=== PATIENT | male | born 1945 | race Caucasian/White ===

== ENCOUNTER 2020-01-23 16:03 | Inpatient (IN) ==
[2020-01-23] MEDS ORDERED: ALUMINUM/MAGNES/SIMETH MAX STR 30 ML UDCUP PO PRN (18:45)
[2020-01-23] MEDS ORDERED: ONDANSETRON 4 MG/2 ML VIAL IV PRN (18:45)
[2020-01-23] MEDS ORDERED: GLUCAGON 1 MG VIAL IM PRN (18:45)
[2020-01-23] MEDS ORDERED: CALCIUM CARBONATE CHEW 500 MG TABLET PO PRN (18:45)
[2020-01-23] MEDS ORDERED: ACETAMINOPHEN 325 MG TABLET PO PRN (18:45)
[2020-01-23] MEDS ORDERED: DEXTROSE 50% 25 GM/50 ML VIAL IV PRN (18:45)
[2020-01-23] MEDS ORDERED: FUROSEMIDE 100 MG/10 ML VIAL IV ONE (18:58)
[2020-01-23] MEDS ORDERED: FUROSEMIDE 20 MG/2 ML VIAL ONE (19:47)
[2020-01-23] MEDS ORDERED: FUROSEMIDE 40 MG/4 ML VIAL ONE (19:47)
[2020-01-23] MEDS: ALBUTEROL/IPRATROPIUM 3 ML NEB RESP TX SCH (19:49)
[2020-01-23] MEDS ORDERED: NITROGLYCERIN SL 0.4 MG TABLET SL ONE ×2 (20:40→20:49)
[2020-01-23] MEDS: NITROGLYCERIN SL 0.4 MG TABLET SL PRN ×2 (20:42→20:50)
[2020-01-23] MEDS ORDERED: ASPIRIN CHEW 81 MG TABLET PO ONE ×2 (20:49→20:57)
[2020-01-23 20:53] LABS: Basophils % 0.4 % (0.0-0.8); Eosinophils % 0.2 % (0.00-10.9); Hematocrit 41.8 VOL% (42.0-52.0); Hemoglobin 13.3 GM/DL (14.0-18.0); Immature Granulocytes % 0.5 %; Immature Granulocytes Absolute 0.05 #; Lymphocytes # 2.3 10*3/uL (1.4-4.0); Lymphocytes % 21.8 % (21.2-54.2); Mean Corpuscular HGB Conc 31.8 GM/DL (32-36); Mean Platelet Volume 11.1 FL (9.6-12.0); Monocytes % 6.8 % (1.7-12.7); NRBC # 0.04 10*3/uL; Neutrophils % 70.3 % (38.7-73.9); Platelet Count 239 T/CUMM (130-400); Red Blood Count 4.18 MC/CUMM (3.8-5.5); Red Cell Distribution Width 14.1 % (9.3-17.3); White Blood Count 10.4 T/CUMM (4-12)
[2020-01-23] MEDS ORDERED: ENOXAPARIN 30 MG/0.3 ML SYRINGE SUBCUT SCH (21:00)
[2020-01-23] MEDS: INSULIN LISPRO 100 UNIT/ML SUBCUT SCH (21:11)
[2020-01-23] MEDS: DIVALPROEX 500 MG TABLET PO SCH (21:11)
[2020-01-23] MEDS: QUEtiapine 100 MG TABLET PO SCH (21:11)
[2020-01-23 21:15] LABS: Albumin 3.1 G/DL (3.4-5.0); Calcium 8.6 MG/DL (8.5-10.1); Osmolality,Calculated 290.3 MOS/KG (273-304); Total Protein 6.7 G/DL (6.4-8.3)
[2020-01-24] MEDS: ALBUTEROL/IPRATROPIUM 3 ML NEB RESP TX SCH ×4 (00:35→18:59)
[2020-01-24 04:52] LABS: Basophils # 0.1 10*3/uL (0.0-0.2); Basophils % 0.6 % (0.0-0.8); Eosinophils # 0.1 10*3/uL (0.0-0.87); Eosinophils % 1.1 % (0.00-10.9); Hematocrit 43.4 VOL% (42.0-52.0); Hemoglobin 13.7 GM/DL (14.0-18.0); Immature Granulocytes % 0.6 %; Immature Granulocytes Absolute 0.06 #; Lymphocytes # 3.2 10*3/uL (1.4-4.0); Lymphocytes % 33.1 % (21.2-54.2); Mean Corpuscular HGB Conc 31.6 GM/DL (32-36); Mean Corpuscular Volume 101.4 FL (87-102); Mean Platelet Volume 11.2 FL (9.6-12.0); Monocytes % 8.1 % (1.7-12.7); NRBC # 0.03 10*3/uL; Neutrophils % 56.5 % (38.7-73.9); Platelet Count 216 T/CUMM (130-400); Red Blood Count 4.28 MC/CUMM (3.8-5.5); Red Cell Distribution Width 14.3 % (9.3-17.3); White Blood Count 9.7 T/CUMM (4-12)
[2020-01-24 05:36] LABS: Albumin 3.1 G/DL (3.4-5.0); Bilirubin,Total 1.5 MG/DL (0.2-1.0); Calcium 8.9 MG/DL (8.5-10.1); Total Protein 6.5 G/DL (6.4-8.3)
[2020-01-24 05:46] LABS: Troponin I 16.1 NG/ML (0.00-0.045)
[2020-01-24] MEDS: INSULIN LISPRO 100 UNIT/ML SUBCUT SCH ×4 (07:45→20:54)
[2020-01-24] MEDS ORDERED: NITROGLYCERIN DRIP 50 MG/250 ML BOTTLE IV PRN (07:52)
[2020-01-24] MEDS: FINASTERIDE 5 MG TABLET PO SCH (08:49)
[2020-01-24] MEDS: DIVALPROEX 500 MG TABLET PO SCH ×3 (08:49→20:54)
[2020-01-24] MEDS: METOPROLOL SUCCINATE XL 25 MG TABLET PO SCH (08:49)
[2020-01-24] MEDS: ASPIRIN 325 MG TABLET PO SCH (08:50)
[2020-01-24] MEDS: PANTOPRAZOLE 40 MG TABLET PO SCH (08:50)
[2020-01-24] MEDS: ENOXAPARIN 100 MG/ML SYRINGE SUBCUT SCH (11:38)
[2020-01-24] MEDS: QUEtiapine 100 MG TABLET PO SCH (20:54)
[2020-01-25] MEDS: ALBUTEROL/IPRATROPIUM 3 ML NEB RESP TX SCH ×4 (00:10→19:22)
[2020-01-25] MEDS: ENOXAPARIN 100 MG/ML SYRINGE SUBCUT SCH ×3 (00:45→23:55)
[2020-01-25 03:53] LABS: Basophils # 0.1 10*3/uL (0.0-0.2); Basophils % 0.6 % (0.0-0.8); Eosinophils # 0.3 10*3/uL (0.0-0.87); Eosinophils % 3.4 % (0.00-10.9); Hematocrit 36.4 VOL% (42.0-52.0); Hemoglobin 11.9 GM/DL (14.0-18.0); Immature Granulocytes % 0.5 %; Immature Granulocytes Absolute 0.04 #; Lymphocytes # 2.1 10*3/uL (1.4-4.0); Lymphocytes % 26.7 % (21.2-54.2); Mean Corpuscular HGB Conc 32.7 GM/DL (32-36); Mean Corpuscular Volume 97.8 FL (87-102); Mean Platelet Volume 11.4 FL (9.6-12.0); Monocytes % 8.3 % (1.7-12.7); Neutrophils % 60.5 % (38.7-73.9); Platelet Count 188 T/CUMM (130-400); Red Blood Count 3.72 MC/CUMM (3.8-5.5); White Blood Count 7.8 T/CUMM (4-12)
[2020-01-25 04:06] LABS: Calcium 8.5 MG/DL (8.5-10.1)
[2020-01-25] MEDS: INSULIN LISPRO 100 UNIT/ML SUBCUT SCH ×4 (07:30→21:04)
[2020-01-25] MEDS: ASPIRIN 325 MG TABLET PO SCH (08:18)
[2020-01-25] MEDS: DIVALPROEX 500 MG TABLET PO SCH ×3 (08:18→21:04)
[2020-01-25] MEDS: FINASTERIDE 5 MG TABLET PO SCH (08:18)
[2020-01-25] MEDS: METOPROLOL SUCCINATE XL 25 MG TABLET PO SCH (08:18)
[2020-01-25] MEDS: PANTOPRAZOLE 40 MG TABLET PO SCH (08:18)
[2020-01-25] MEDS ORDERED: MAGNESIUM SULF RIDER 2 GM in PREMIX 1 EACH IV PRN (09:26)
[2020-01-25] MEDS ORDERED: diphenhydrAMINE CAP 25 MG CAPSULE PO ONE (09:26)
[2020-01-25] MEDS ORDERED: POTASSIUM CHLORIDE RIDER 10 MEQ in PREMIX 1 EACH IV PRN (09:26)
[2020-01-25] MEDS ORDERED: DIAZEPAM 5 MG TABLET PO ONE (09:26)
[2020-01-25] MEDS ORDERED: SODIUM CHLORIDE 0.45% 1,000 ML IV SCH (09:30)
[2020-01-25] MEDS: QUEtiapine 100 MG TABLET PO SCH (21:04)
[2020-01-26] MEDS: ALBUTEROL/IPRATROPIUM 3 ML NEB RESP TX SCH ×4 (01:00→19:10)
[2020-01-26 03:15] LABS: Basophils # 0.1 10*3/uL (0.0-0.2); Basophils % 0.7 % (0.0-0.8); Eosinophils # 0.4 10*3/uL (0.0-0.87); Eosinophils % 5.1 % (0.00-10.9); Hematocrit 35.9 VOL% (42.0-52.0); Hemoglobin 11.8 GM/DL (14.0-18.0); Immature Granulocytes % 0.5 %; Immature Granulocytes Absolute 0.04 #; Lymphocytes # 2.2 10*3/uL (1.4-4.0); Lymphocytes % 26.7 % (21.2-54.2); Mean Corpuscular HGB Conc 32.9 GM/DL (32-36); Mean Corpuscular Volume 98.1 FL (87-102); Mean Platelet Volume 11.4 FL (9.6-12.0); Monocytes % 8.6 % (1.7-12.7); Neutrophils % 58.4 % (38.7-73.9); Platelet Count 177 T/CUMM (130-400); Red Blood Count 3.66 MC/CUMM (3.8-5.5); Red Cell Distribution Width 13.9 % (9.3-17.3); White Blood Count 8.2 T/CUMM (4-12)
[2020-01-26 03:44] LABS: Calcium 8.7 MG/DL (8.5-10.1); Osmolality,Calculated 285.1 MOS/KG (273-304)
[2020-01-26] MEDS ORDERED: diphenhydrAMINE CAP 25 MG CAPSULE PO ONE (06:00)
[2020-01-26] MEDS ORDERED: SODIUM CHLORIDE 0.45% 1,000 ML IV SCH (06:00)
[2020-01-26] MEDS ORDERED: DIAZEPAM 5 MG TABLET PO ONE (06:00)
[2020-01-26] MEDS: METOPROLOL SUCCINATE XL 25 MG TABLET PO SCH (07:40)
[2020-01-26] MEDS: FINASTERIDE 5 MG TABLET PO SCH (07:40)
[2020-01-26] MEDS: PANTOPRAZOLE 40 MG TABLET PO SCH (07:40)
[2020-01-26] MEDS: DIVALPROEX 500 MG TABLET PO SCH ×3 (07:40→20:42)
[2020-01-26] MEDS: INSULIN LISPRO 100 UNIT/ML SUBCUT SCH ×4 (07:47→21:26)
[2020-01-26] MEDS ORDERED: HEPARIN/NACL 0.9% 2 UNITS/ML 1,000 ML IV ONE (08:11)
[2020-01-26] MEDS ORDERED: LIDOCAINE 1%/EPI INJ 20 ML VIAL ONE (08:11)
[2020-01-26] MEDS ORDERED: MIDAZOLAM 2 MG/2 ML VIAL ONE (08:25)
[2020-01-26] MEDS ORDERED: fentaNYL 100 MCG/2 ML VIAL ONE (08:25)
[2020-01-26] MEDS: ASPIRIN 325 MG TABLET PO SCH (08:48)
[2020-01-26] MEDS ORDERED: ENOXAPARIN 60 MG/0.6 ML SYRINGE ONE (09:03)
[2020-01-26] MEDS: ENOXAPARIN 100 MG/ML SYRINGE SUBCUT SCH ×2 (12:44→23:57)
[2020-01-26] MEDS ORDERED: ALBUTEROL 2.5 MG/3 ML NEB RESP TX PRN (16:26)
[2020-01-26] MEDS ORDERED: ALBUTEROL 2.5 MG/3 ML NEB RESP TX SCH (17:00)
[2020-01-26] MEDS: QUEtiapine 100 MG TABLET PO SCH (20:42)
[2020-01-26] MEDS: ZALEPLON 5 MG CAPSULE PO PRN (22:02)
[2020-01-26] MEDS: DIAZEPAM 10 MG/2 ML SYRINGE IM PRN ×2 (23:03→23:56)
[2020-01-27] MEDS: ALBUTEROL/IPRATROPIUM 3 ML NEB RESP TX SCH ×2 (01:22→07:45)
[2020-01-27] MEDS: DIAZEPAM 10 MG/2 ML SYRINGE IM PRN ×2 (02:50→03:35)
[2020-01-27] MEDS ORDERED: DIAZEPAM 10 MG/2 ML SYRINGE IM ONE (03:28)
[2020-01-27 06:33] LABS: Basophils % 0.5 % (0.0-0.8); Eosinophils # 0.2 10*3/uL (0.0-0.87); Hematocrit 36.9 VOL% (42.0-52.0); Hemoglobin 12.1 GM/DL (14.0-18.0); Immature Granulocytes % 0.5 %; Immature Granulocytes Absolute 0.04 #; Lymphocytes # 1.6 10*3/uL (1.4-4.0); Lymphocytes % 20.3 % (21.2-54.2); Mean Corpuscular HGB Conc 32.8 GM/DL (32-36); Mean Corpuscular Volume 96.3 FL (87-102); Mean Platelet Volume 11.7 FL (9.6-12.0); Monocytes % 12.4 % (1.7-12.7); Neutrophils % 64.3 % (38.7-73.9); Platelet Count 172 T/CUMM (130-400); Red Blood Count 3.83 MC/CUMM (3.8-5.5); Red Cell Distribution Width 13.6 % (9.3-17.3); White Blood Count 7.9 T/CUMM (4-12)
[2020-01-27 07:06] LABS: Calcium 8.7 MG/DL (8.5-10.1); Osmolality,Calculated 284.1 MOS/KG (273-304)
[2020-01-27] MEDS: INSULIN LISPRO 100 UNIT/ML SUBCUT SCH ×4 (07:51→21:50)
[2020-01-27] MEDS: METOPROLOL SUCCINATE XL 25 MG TABLET PO SCH (09:45)
[2020-01-27] MEDS: ATORVASTATIN 40 MG TABLET PO SCH (09:45)
[2020-01-27] MEDS: FINASTERIDE 5 MG TABLET PO SCH (09:45)
[2020-01-27] MEDS: DIVALPROEX 500 MG TABLET PO SCH ×3 (09:45→21:49)
[2020-01-27] MEDS: PANTOPRAZOLE 40 MG TABLET PO SCH (09:45)
[2020-01-27] MEDS: ASPIRIN 325 MG TABLET PO SCH (09:45)
[2020-01-27] MEDS ORDERED: LEVALBUTEROL 0.63 MG/3 ML NEB RESP TX PRN (09:48)
[2020-01-27] MEDS: ENOXAPARIN 100 MG/ML SYRINGE SUBCUT SCH (12:26)
[2020-01-27] MEDS: LOSARTAN 25 MG TABLET PO SCH (21:47)
[2020-01-27] MEDS: QUEtiapine 100 MG TABLET PO SCH (21:49)
[2020-01-27] MEDS: ZALEPLON 5 MG CAPSULE PO PRN (21:50)
[2020-01-28] MEDS: ENOXAPARIN 100 MG/ML SYRINGE SUBCUT SCH ×2 (00:47→15:03)
[2020-01-28 04:36] LABS: Basophils % 0.4 % (0.0-0.8); Eosinophils # 0.3 10*3/uL (0.0-0.87); Eosinophils % 4.5 % (0.00-10.9); Hematocrit 39.9 VOL% (42.0-52.0); Hemoglobin 12.7 GM/DL (14.0-18.0); Immature Granulocytes % 0.4 %; Immature Granulocytes Absolute 0.03 #; Lymphocytes # 1.9 10*3/uL (1.4-4.0); Lymphocytes % 25.4 % (21.2-54.2); Mean Corpuscular HGB Conc 31.8 GM/DL (32-36); Mean Corpuscular Volume 98.5 FL (87-102); Mean Platelet Volume 11.5 FL (9.6-12.0); Neutrophils % 57.3 % (38.7-73.9); Platelet Count 170 T/CUMM (130-400); Red Blood Count 4.05 MC/CUMM (3.8-5.5); Red Cell Distribution Width 13.6 % (9.3-17.3); White Blood Count 7.6 T/CUMM (4-12)
[2020-01-28 05:08] LABS: Calcium 8.6 MG/DL (8.5-10.1); Osmolality,Calculated 288.8 MOS/KG (273-304)
[2020-01-28] MEDS: INSULIN LISPRO 100 UNIT/ML SUBCUT SCH ×4 (08:09→21:18)
[2020-01-28] MEDS: DIVALPROEX 500 MG TABLET PO SCH ×3 (08:35→21:18)
[2020-01-28] MEDS: MULTIVITAMIN (BEROCCA) TABLET PO SCH (08:35)
[2020-01-28] MEDS: ASPIRIN 325 MG TABLET PO SCH (08:36)
[2020-01-28] MEDS: THIAMINE 100 MG TABLET PO SCH (08:36)
[2020-01-28] MEDS: PANTOPRAZOLE 40 MG TABLET PO SCH (08:36)
[2020-01-28] MEDS: FOLIC ACID 1 MG TABLET PO SCH (08:36)
[2020-01-28] MEDS: LOSARTAN 25 MG TABLET PO SCH ×2 (08:36→21:18)
[2020-01-28] MEDS: METOPROLOL SUCCINATE XL 25 MG TABLET PO SCH (08:36)
[2020-01-28] MEDS: FINASTERIDE 5 MG TABLET PO SCH (08:36)
[2020-01-28] MEDS: ATORVASTATIN 40 MG TABLET PO SCH (08:38)
[2020-01-28] MEDS ORDERED: MAGNESIUM SULF RIDER 2 GM in PREMIX 1 EACH IV PRN (10:03)
[2020-01-28] MEDS ORDERED: POTASSIUM CHLORIDE RIDER 10 MEQ in PREMIX 1 EACH IV PRN (10:03)
[2020-01-28] MEDS ORDERED: HEPARIN/NACL 0.9% 2 UNITS/ML 500 ML IV ONE (14:46)
[2020-01-28] MEDS ORDERED: TICAGRELOR 90 MG TABLET PO ONE (18:57)
[2020-01-28] MEDS: QUEtiapine 100 MG TABLET PO SCH ×2 (19:06→21:19)
[2020-01-28] MEDS: ZALEPLON 5 MG CAPSULE PO PRN (21:19)
[2020-01-28] MEDS: LORazepam 2 MG/1 ML VIAL IV PRN ×2 (22:46→23:00)
[2020-01-28] MEDS ORDERED: HALOPERIDOL 5 MG/ML AMP IM ONE (22:55)
[2020-01-28] MEDS ORDERED: dilTIAZem Drip 125 MG/125 ML PREMIX IV SCH (23:30)
[2020-01-29] MEDS: ENOXAPARIN 100 MG/ML SYRINGE SUBCUT SCH ×2 (00:09→17:11)
[2020-01-29 04:15] LABS: Basophils % 0.4 % (0.0-0.8); Eosinophils # 0.2 10*3/uL (0.0-0.87); Eosinophils % 1.8 % (0.00-10.9); Hematocrit 41.9 VOL% (42.0-52.0); Hemoglobin 13.2 GM/DL (14.0-18.0); Immature Granulocytes Absolute 0.08 #; Lymphocytes # 1.1 10*3/uL (1.4-4.0); Lymphocytes % 13.5 % (21.2-54.2); Mean Corpuscular HGB Conc 31.5 GM/DL (32-36); Mean Corpuscular Volume 101.2 FL (87-102); Mean Platelet Volume 11.1 FL (9.6-12.0); Monocytes % 8.6 % (1.7-12.7); Neutrophils % 74.7 % (38.7-73.9); Platelet Count 190 T/CUMM (130-400); Red Blood Count 4.14 MC/CUMM (3.8-5.5); Red Cell Distribution Width 13.5 % (9.3-17.3); White Blood Count 8.3 T/CUMM (4-12)
[2020-01-29 05:22] LABS: Calcium 8.7 MG/DL (8.5-10.1); Osmolality,Calculated 289.1 MOS/KG (273-304)
[2020-01-29] MEDS: LORazepam 2 MG/1 ML VIAL IV PRN ×2 (06:42→18:38)
[2020-01-29] MEDS: INSULIN LISPRO 100 UNIT/ML SUBCUT SCH ×4 (07:12→21:00)
[2020-01-29] MEDS ORDERED: DIAZEPAM 5 MG TABLET PO ONE (08:00)
[2020-01-29] MEDS ORDERED: diphenhydrAMINE CAP 25 MG CAPSULE PO ONE (08:00)
[2020-01-29] MEDS: ASPIRIN EC 81 MG TABLET PO SCH (10:06)
[2020-01-29] MEDS: FOLIC ACID 1 MG TABLET PO SCH (10:06)
[2020-01-29] MEDS: FINASTERIDE 5 MG TABLET PO SCH (10:06)
[2020-01-29] MEDS: METOPROLOL SUCCINATE XL 25 MG TABLET PO SCH ×2 (10:06→10:31)
[2020-01-29] MEDS: PANTOPRAZOLE 40 MG TABLET PO SCH (10:06)
[2020-01-29] MEDS: DIVALPROEX 500 MG TABLET PO SCH ×3 (10:06→21:14)
[2020-01-29] MEDS: TICAGRELOR 90 MG TABLET PO SCH ×2 (10:07→21:14)
[2020-01-29] MEDS: LOSARTAN 25 MG TABLET PO SCH ×2 (10:07→21:14)
[2020-01-29] MEDS: ATORVASTATIN 40 MG TABLET PO SCH (10:07)
[2020-01-29] MEDS: MULTIVITAMIN (BEROCCA) TABLET PO SCH (10:07)
[2020-01-29] MEDS: THIAMINE 100 MG TABLET PO SCH (10:07)
[2020-01-29] MEDS: methylPREDNISolone SOD SUC 40 MG/1 ML VIAL IV SCH ×2 (10:08→17:10)
[2020-01-29] MEDS ORDERED: LEVALBUTEROL 0.63 MG/3 ML NEB RESP TX SCH (13:00)
[2020-01-29] MEDS: LEVALBUTEROL 0.63 MG/3 ML NEB RESP TX SCH ×3 (13:22→19:01)
[2020-01-29 14:50] LABS: ABG Base Excess -2.1 MMOL/L (-2.5-2.5); ABG HCO3 22.6 MMOL/L (20-26); ABG Oxygen Saturation 96.3 % (95-100); ABG PCO2 30.5 MM HG (35-48); ABG PH 7.443 (7.35-7.45); ABG PO2 79.4 MM HG (80-95)
[2020-01-29] MEDS: QUEtiapine 100 MG TABLET PO SCH (21:14)
[2020-01-30] MEDS: ENOXAPARIN 100 MG/ML SYRINGE SUBCUT SCH (00:24)
[2020-01-30] MEDS: methylPREDNISolone SOD SUC 40 MG/1 ML VIAL IV SCH ×2 (00:24→08:39)
[2020-01-30] MEDS: LEVALBUTEROL 0.63 MG/3 ML NEB RESP TX SCH ×3 (01:05→13:03)
[2020-01-30 06:19] LABS: Basophils % 0.2 % (0.0-0.8); Hematocrit 40.5 VOL% (42.0-52.0); Hemoglobin 13.4 GM/DL (14.0-18.0); Immature Granulocytes % 0.7 %; Immature Granulocytes Absolute 0.08 #; Lymphocytes # 0.4 10*3/uL (1.4-4.0); Lymphocytes % 3.7 % (21.2-54.2); Mean Corpuscular HGB Conc 33.1 GM/DL (32-36); Mean Corpuscular Volume 96.7 FL (87-102); Mean Platelet Volume 11.2 FL (9.6-12.0); Monocytes % 2.7 % (1.7-12.7); Neutrophils % 92.7 % (38.7-73.9); Platelet Count 253 T/CUMM (130-400); Red Blood Count 4.19 MC/CUMM (3.8-5.5); Red Cell Distribution Width 13.8 % (9.3-17.3)
[2020-01-30 06:38] LABS: Calcium 9.1 MG/DL (8.5-10.1); Osmolality,Calculated 297.8 MOS/KG (273-304)
[2020-01-30 06:43] LABS: Band Neutrophils 1 % (0-10); Lymphocytes 2 % (20-55); Platelet Estimate Adequate; Segmented Neutrophils 95 % (50-85); Total Cells Counted 100
[2020-01-30] MEDS: ATORVASTATIN 40 MG TABLET PO SCH (08:38)
[2020-01-30] MEDS: LOSARTAN 25 MG TABLET PO SCH (08:38)
[2020-01-30] MEDS: PANTOPRAZOLE 40 MG TABLET PO SCH (08:38)
[2020-01-30] MEDS: METOPROLOL SUCCINATE XL 25 MG TABLET PO SCH (08:38)
[2020-01-30] MEDS: FINASTERIDE 5 MG TABLET PO SCH (08:38)
[2020-01-30] MEDS: ASPIRIN EC 81 MG TABLET PO SCH (08:38)
[2020-01-30] MEDS: INSULIN LISPRO 100 UNIT/ML SUBCUT SCH ×3 (08:45→16:29)
[2020-01-30] MEDS ORDERED: CLOPIDOGREL 75 MG TABLET PO SCH (09:00)
[2020-01-30] MEDS ORDERED: ISOSORBIDE MONONITRATE 30 MG TABLET PO SCH (11:30)
[2020-01-30 16:19] VITALS: BP 99/70
[2020-01-30] MEDS ORDERED: DIVALPROEX 500 MG TABLET PO SCH (21:00)
[2020-01-30] MEDS ORDERED: methylPREDNISolone SOD SUC 40 MG/1 ML VIAL IV SCH (21:00)
[2020-01-30] MEDS ORDERED: ENOXAPARIN 40 MG/0.4 ML SYRINGE SUBCUT SCH (23:30)
== END 2020-01-30 18:40 | disposition hospice, home (50) | DRG 280 ==
LOC: N.ICU 18:16 → SUATTDRO 18:16 → N.TELES 01-29 18:10
PROVIDERS: ADMIT Internal Medicine; ATTEND Internal Medicine